=== PATIENT | male | born 2000 | race Caucasian/White ===

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

== ENCOUNTER 2020-07-07 02:53 | Emergency (ER) | payer SELFPAY ==
--- NOTE | 2020-07-07 03:11 | ED Physician Documentation ---
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 He subsequently went back to work when he later developed nausea and vomiting with dry heaves. He has persistence of the symptoms is now coming to the emergency department for evaluation. Review of Systems Constitutional: denies: Fever Eyes: denies: Decreased vision Ears: denies: Ear pain Nose: denies: Congestion Throat: denies: Sore throat Cardiac: denies: Chest pain / pressure Respiratory: denies: Dyspnea GI: reports: Nausea, Vomiting. denies: Abdominal Pain, Constipation, Diarrhea : denies: Dysuria PD PAST MEDICAL HISTORY - Past Medical History Cardiovascular: None Respiratory: None Endocrine/Autoimmune: None GI: None : None HEENT: None Psych: ADD/ADHD Derm: None - Past Surgical History Past Surgical History: No General: Appendectomy - Present Medications Home Medications: Ambulatory Orders Medication Instructions Recorded Confirmed Ondansetron Odt [Zofran] 4 mg TL Q6H PRN #10 tablet 07/07/20 - Allergies Allergies/Adverse Reactions: Allergies Allergy/AdvReac Type Severity Reaction Status Date / Time No Known Drug Allergies Allergy Verified 07/07/20 03:06 - Social History Does the pt smoke?: No Smoking Status: Never smoker Does the pt drink ETOH?: No Does the pt have substance abuse?: No - Immunizations Immunizations are current?: Yes - POLST Patient has POLST: No PD ED PE NORMAL - Vitals Vital signs reviewed: Yes (hypertensive) - General General: Alert and oriented X 3, No acute distress, Well developed/nourished - HEENT HEENT: Atraumatic, PERRL, EOMI - Neck Neck: Supple, no meningeal sign, No bony TTP - Cardiac Cardiac: RRR, No murmur - Respiratory Respiratory: No respiratory distress, Clear bilaterally - Abdomen Abdomen: Normal bowel sounds, Soft, Non tender, Non distended, No organomegaly - Back Back: No CVA TTP, No spinal TTP - Derm Derm: Normal color, Warm and dry, No rash - Extremities Extremities: No deformity, No edema - Neuro Neuro: Alert and oriented X 3, 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, No motor deficit, No sensory deficit, Normal speech Eye Opening: Spontaneous Motor: Obeys Commands Verbal: Oriented GCS Score: 15 - Psych Psych: Normal mood, Normal affect Results - Vitals Vitals: Vital Signs - 24 hr 07/07/20 07/07/20 07/07/20 03:06 03:10 03:54 Temperature 37.8 C 37.8 C 37.8 C Heart Rate 98 98 107 H Respiratory 16 16 16 Rate Blood Pressure 150/88 H 150/88 H 148/90 H O2 Saturation 100 100 100 Oxygen O2 Source Room air - EKG (time done) 0259 Rate: Rate (enter#) (85) Ischemia: Normal ST segments Compare to prior EKG: Unchanged from prior EKG (SPT 02/04/2013 no changes) Computer interpretation: Agree with computer - Labs Labs: Laboratory Tests 07/07/20 07/07/20 07/07/20 03:00 03:13 03:13 WBC 7.3 RBC 5.23 Hgb 13.6 L Hct 42.2 MCV 80.7 MCH 26.0 L MCHC 32.2 RDW 12.8 Plt Count 194 MPV 10.7 Neut # (Auto) 5.6 Lymph # (Auto) 0.7 L [place] # (Auto) 1.0 Eos # (Auto) 0.0 Baso # (Auto) 0.0 Absolute Nucleated RBC 0.00 Nucleated RBC % 0.0 Sodium 132 L Potassium 3.4 L Chloride 93 L Carbon Dioxide 26 Anion Gap 13.0 BUN 18 Creatinine 1.1 Estimated GFR (MDRD) 85 L Glucose 99 Calcium 9.2 Total Bilirubin 1.3 H AST 21 ALT 15 Alkaline Phosphatase 38 L Total Protein 7.4 Albumin 5.0 Globulin 2.4 Albumin/Globulin Ratio 2.1 Lipase 22 Urine Color YELLOW Urine Clarity CLEAR Urine pH 6.0 Ur Specific [place] 1.010 Urine Protein NEGATIVE Urine Glucose (UA) NEGATIVE Urine Ketones 15 H Urine Occult Blood SMALL H Urine Nitrite NEGATIVE Urine Bilirubin NEGATIVE Urine Urobilinogen 0.2 (NORMAL) Ur Leukocyte Esterase NEGATIVE Urine RBC 0-5 Urine WBC 0-3 Ur Squamous Epith Cells NONE SEEN Urine Bacteria None Seen Urine Culture Comments NOT INDICATED Procedures - IVC sono (time) 0318 Bedside IVC sono: IVC measures (cm) (1.12), Dehydration (est 1 ltier deficit) PD MEDICAL DECISION MAKING - ED course Complexity details: reviewed results, re-evaluated patient, considered differential, d/w patient ED course: 19-year-old male with what sounds like acute food poisoning as nausea and vomiting he is mildly dehydrated on initial evaluation and he is administered intravenous fluids as well as Zofran. We will send him home with a prescription for some Zofran and a note for work. Departure - Departure Disposition: Home, Self Care Clinical Impression: Food poisoning Condition: Stable Instructions: ED Gastroenteritis Vs Food Poison Follow-Up: Cuong Barfield MD [Provider Admit Priv/Credential] - Prescriptions: Ondansetron Odt [Zofran] 4 mg TL Q6H PRN #10 tablet PRN Reason: Nausea / Vomiting Forms: Activity restrictions
[2020-07-07 03:29] LABS: BILIRUBIN,URINE NEGATIVE (NEGATIVE); GLUCOSE, URINE (UA) NEGATIVE (NEGATIVE); KETONES,URINE (UA) 15 mg/dL (NEGATIVE); LEUKOCYTE ESTERASE, URINE NEGATIVE (NEGATIVE); NITRITE,URINE NEGATIVE (NEGATIVE); OCCULT BLOOD,URINE SMALL (NEGATIVE); PROTEIN,URINE NEGATIVE (NEGATIVE); UROBILINOGEN,URINE 0.2 (NORMAL) E.U./dL (NORMAL)
[2020-07-07 03:30] LABS: CLARITY,URINE CLEAR (CLEAR)
[2020-07-07 03:34] LABS: BACTERIA,URINE None Seen /HPF (None Seen); RBC,URINE 0-5 /HPF (0-5); SQUAMOUS EPITHELIAL CELL,UR NONE SEEN (<= Few); WBC,URINE 0-3 /HPF (0-3)
[2020-07-07] MEDS ORDERED: ONDANSETRON 4 MG/2 ML VIAL IVP STA (03:47)
[2020-07-07] MEDS ORDERED: SODIUM CHLORIDE 0.9% 1,000 ML IV STA (03:47)
[2020-07-07 03:52] LABS: BASOPHILS % (AUTO) 0.4 %; EOSINOPHILS % (AUTO) 0.5 %; HCT - HEMATOCRIT 42.2 % (42.0-52.0); HGB - HEMOGLOBIN 13.6 g/dL (14.0-18.0); LYMPHOCYTES # (AUTO) 0.7 10^3/uL (1.5-3.5); LYMPHOCYTES % (AUTO) 8.9 %; MEAN CORPUSCULAR HGB CONC 32.2 g/dL (32.0-36.0); MEAN CORPUSCULAR VOLUME 80.7 fL (80.0-94.0); MEAN PLATELET VOLUME 10.7 fL (7.4-11.4); MONOCYTES % (AUTO) 13.2 %; NEUTROPHILS # (AUTO) 5.6 10^3/uL (1.5-6.6); NEUTROPHILS % (AUTO) 76.9 %; PLT - PLATELET COUNT 194 10^3/uL (130-450); RED BLOOD COUNT 5.23 10^6/uL (4.70-6.10); RED CELL DISTRIBUTION WIDTH 12.8 % (12.0-15.0); WHITE BLOOD COUNT 7.3 x10^3/uL (4.8-10.8)
[2020-07-07 04:01] LABS: ALBUMIN/GLOBULIN RATIO 2.1 (1.0-2.2); BILIRUBIN,TOTAL 1.3 mg/dL (0.2-1.0); CALCIUM 9.2 mg/dL (8.5-10.3); CREATININE 1.1 mg/dL (0.6-1.2); POTASSIUM 3.4 mmol/L (3.5-5.0); TOTAL PROTEIN 7.4 g/dL (6.7-8.2)
[2020-07-07 04:38] VITALS: BP 134/77
== END 2020-07-07 04:54 | disposition home or self-care (01) ==
LOC: EDUNIT# → ED 02:53
DX: A05.9 Bacterial foodborne intoxication, unspecified (principal); E86.0 Dehydration
CPT/HCPCS: 36415; 80053; 81001; 83690; 85025; 87086; 93005; 96361; 96374; 99284

== ENCOUNTER 2023-05-20 15:30 | Emergency (ER) | payer BC ==
--- NOTE | 2023-05-20 15:42 | ED Physician Documentation ---
History of Present Illness - Stated complaint Stated Complaint: WEAKNESS - Chief complaint Chief Complaint: Abd Pain - History obtained from History obtained from: Patient, EMS - History of Present Illness Timing: Today Pain level max: 3 Pain level now: 2 - Additonal information Additional information: Patient is a 22-year-old male who presents to the emergency department via EMS. He was at work today when he started feeling nauseated and had an episode of vomiting. He states it started after eating a cup of noodles and a [employer] energy drink. No recent illnesses. No fevers. No cough. No congestion. He states now he just feels shaky and sore. He did not have any abdominal pain. No diarrhea. No constipation. He does use marijuana daily. Is not on any medications. Denies any alcohol use. He is still feels slightly nauseated. He is unsure if anyone else at work is sick. Review of Systems Constitutional: denies: Fever, Chills Respiratory: denies: Cough GI: reports: Nausea, Vomiting. denies: Diarrhea, Hematemesis, Bloody / black stool : denies: Dysuria Skin: denies: Rash Musculoskeletal: denies: Neck pain, Back pain Neurologic: denies: Headache PD PAST MEDICAL HISTORY - Past Medical History Cardiovascular: None Respiratory: None Endocrine/Autoimmune: None GI: None : None HEENT: None Psych: ADD/ADHD Derm: None - Past Surgical History Past Surgical History: No General: Appendectomy - Present Medications Home Medications: Ambulatory Orders Medication Instructions Recorded Confirmed Ondansetron Odt [Zofran] 4 mg TL Q6H PRN #10 tablet 05/20/23 - Allergies Allergies/Adverse Reactions: Allergies Allergy/AdvReac Type Severity Reaction Status Date / Time No Known Drug Allergies Allergy Verified 05/20/23 15:56 - Social History Does the pt smoke?: No Smoking Status: Never smoker Does the pt drink ETOH?: No Does the pt have substance abuse?: No - Immunizations Immunizations are current?: Yes - POLST Patient has POLST: No PD ED PE NORMAL - Vitals Vital signs reviewed: Yes - General General: Alert and oriented X 3, No acute distress - HEENT HEENT: PERRL, Moist mucous membranes - Neck Neck: Supple, no meningeal sign - Cardiac Cardiac: RRR, Strong equal pulses - Respiratory Respiratory: No respiratory distress, Clear bilaterally - Abdomen Abdomen: Soft, Non tender, Non distended - Derm Derm: Warm and dry, No rash - Extremities Extremities: No edema - Neuro Neuro: Alert and oriented X 3 - Psych Psych: Normal mood, Normal affect Results - Vitals Vitals: Vital Signs - 24 hr 05/20/23 05/20/23 05/20/23 15:30 16:00 16:53 Temperature 36.6 C 36.7 C Heart Rate 80 64 79 Respiratory 16 16 17 Rate Blood Pressure 141/71 H 139/75 H 132/78 H O2 Saturation 100 99 100 Oxygen O2 Source Room air - EKG (time done) 1553 EKG releavant findings:: EKG personally interpreted by author of this note. Relevant findings are: Rate: Rate (enter#) (62) Rhythm: NSR [place]: Normal Intervals: Normal HI QRS: Normal Ischemia: Normal ST segments - Labs Labs: Laboratory Tests 05/20/23 05/20/23 05/20/23 15:40 15:40 15:45 WBC 11.4 H RBC 5.63 Hgb 14.5 Hct 45.3 MCV 80.5 MCH 25.8 L MCHC 32.0 RDW 13.2 Plt Count 245 MPV 9.9 Neut # (Auto) 8.4 H Lymph # (Auto) 2.2 [place] # (Auto) 0.7 Eos # (Auto) 0.1 Baso # (Auto) 0.1 Absolute Nucleated RBC 0.00 Nucleated RBC % 0.0 Sodium 140 Potassium 3.6 Chloride 103 Carbon Dioxide 28 Anion Gap 9.0 BUN 13 Creatinine 1.0 Estimated GFR (MDRD) 93 Glucose 93 Calcium 9.8 Total Bilirubin 0.7 AST 25 ALT 14 Alkaline Phosphatase 45 Total Protein 7.6 Albumin 5.2 Globulin 2.4 Albumin/Globulin Ratio 2.2 Lipase 11 Urine Color YELLOW Urine Clarity CLEAR Urine pH 6.0 Ur Specific [place] 1.010 Urine Protein NEGATIVE Urine Glucose (UA) NEGATIVE Urine Ketones NEGATIVE Urine Occult Blood TRACE-INTA Urine Nitrite NEGATIVE Urine Bilirubin NEGATIVE Urine Urobilinogen 0.2 (NORMAL) Ur Leukocyte Esterase NEGATIVE Ur Microscopic Review NOT INDICATED Urine Culture Comments NOT INDICATED PD Medical Decision Making - ED course Complexity details: reviewed results, re-evaluated patient, considered differential, d/w patient, d/w family ED course: Patient was given IV fluids, Zofran. No significant lab abnormalities. No acute findings on EKG or telemetry. Patient is well-appearing, nontoxic. Afebrile. Abdomen is soft, nontender nondistended. No diarrhea or constipation. Possible viral enteritis? No indication for emergent imaging at this time. Will place on Zofran for home as well. Continue supportive care. Patient and family counseled regarding signs and symptoms for which I believe and urgent re-evaluation would be necessary. Patient with good understanding of and agreement to plan and is comfortable going home at this time This document was made in part using voice recognition software. While efforts are made to proofread this document, sound alike and grammatical errors may occur. Departure - Departure Disposition: Home, Self Care Clinical Impression: Nausea Vomiting Qualifiers: Vomiting type: unspecified Nausea presence: with nausea Qualified Code(s): R11.2 - Nausea with vomiting, unspecified Condition: Good Instructions: ED Nausea Vomiting Follow-Up: your,doctor in 1 week if not better [Other] Prescriptions: Ondansetron Odt [Zofran] 4 mg TL Q6H PRN #10 tablet PRN Reason: Nausea / Vomiting Comments: Your testing does not show any acute abnormalities today. You were given IV fluids and Zofran. Your nausea is resolved. This is likely due to a viral illness, the nausea and vomiting may continue for up to 2 to 3 days. You may develop diarrhea as well. Your prescription was sent to [facility] in [place]. Please return if you worsen. Forms: PCP List Discharge Date/Time: 05/20/23 16:58
[2023-05-20 15:53] LABS: BASOPHILS # (AUTO) 0.1 10^3/uL (0.0-0.1); BASOPHILS % (AUTO) 0.4 %; EOSINOPHILS # (AUTO) 0.1 10^3/uL (0.0-0.7); EOSINOPHILS % (AUTO) 0.6 %; HCT - HEMATOCRIT 45.3 % (42.0-52.0); HGB - HEMOGLOBIN 14.5 g/dL (14.0-18.0); LYMPHOCYTES # (AUTO) 2.2 10^3/uL (1.5-3.5); LYMPHOCYTES % (AUTO) 19.4 %; MEAN CORPUSCULAR HEMOGLOBIN 25.8 pg (27.0-31.0); MEAN CORPUSCULAR VOLUME 80.5 fL (80.0-94.0); MEAN PLATELET VOLUME 9.9 fL (7.4-11.4); MONOCYTES # (AUTO) 0.7 10^3/uL (0.0-1.0); MONOCYTES % (AUTO) 5.7 %; NEUTROPHILS # (AUTO) 8.4 10^3/uL (1.5-6.6); NEUTROPHILS % (AUTO) 73.6 %; PLT - PLATELET COUNT 245 10^3/uL (130-450); RED BLOOD COUNT 5.63 10^6/uL (4.70-6.10); RED CELL DISTRIBUTION WIDTH 13.2 % (12.0-15.0); WHITE BLOOD COUNT 11.4 x10^3/uL (4.8-10.8)
[2023-05-20] MEDS: SODIUM CHLORIDE 0.9% 1,000 ML IV STA (15:53)
[2023-05-20] MEDS: ONDANSETRON 4 MG/2 ML VIAL IVP STA (15:54)
[2023-05-20 16:05] LABS: BILIRUBIN,URINE NEGATIVE (NEGATIVE); GLUCOSE, URINE (UA) NEGATIVE (NEGATIVE); KETONES,URINE (UA) NEGATIVE (NEGATIVE); LEUKOCYTE ESTERASE, URINE NEGATIVE (NEGATIVE); NITRITE,URINE NEGATIVE (NEGATIVE); OCCULT BLOOD,URINE TRACE-INTA (NEGATIVE); PROTEIN,URINE NEGATIVE (NEGATIVE); UROBILINOGEN,URINE 0.2 (NORMAL) E.U./dL (NORMAL)
[2023-05-20 16:10] LABS: CLARITY,URINE CLEAR (CLEAR)
[2023-05-20 16:37] LABS: ALBUMIN 5.2 g/dL (3.2-5.5); ALBUMIN/GLOBULIN RATIO 2.2 (1.0-2.2); BILIRUBIN,TOTAL 0.7 mg/dL (0.2-1.0); CALCIUM 9.8 mg/dL (8.5-10.3); POTASSIUM 3.6 mmol/L (3.5-4.5); TOTAL PROTEIN 7.6 g/dL (6.4-8.9)
[2023-05-20 16:58] VITALS: BP 132/78; O2SAT 100
== END 2023-05-20 16:58 | disposition home or self-care (01) ==
LOC: EDUNIT# → ED 15:30
DX: R11.2 Nausea with vomiting, unspecified (principal)
CPT/HCPCS: 36415; 80053; 81001; 81003; 83690; 85025; 87086; 93005; 99283; 99284

== ENCOUNTER 2023-11-22 22:38 | Emergency (ER) | payer BC ==
[2023-11-22 22:59] VITALS: BP 139/76; O2SAT 99
--- NOTE | 2023-11-22 23:26 | ED Physician Documentation ---
PD HPI HEENT - Stated complaint Stated Complaint: TOOTH PX - Chief complaint Chief Complaint: Heent - History obtained from History obtained from: Patient - Additional information Additional information: 23-year-old male presents for 2 days of dental pain. He states that he has a known broken tooth on that side with an exposed nerve root. He states that he aggravated the nerve root by something he ate prior to symptom onset. Has taken Tylenol and ibuprofen at home for pain without significant relief. He states that he will see a dentist Friday morning, but he cannot take the pain. Review of Systems Constitutional: denies: Fever, Chills Ears: denies: Loss of hearing, Ear pain, Drainage/discharge Nose: denies: Rhinorrhea / runny nose, Foreign Body Throat: reports: Dental pain / toothache. denies: Oral lesions / sores, Sore throat, Swollen tonsils, Swallowed foreign body PD PAST MEDICAL HISTORY - Past Medical History Past Medical History: Yes Cardiovascular: None Respiratory: None Endocrine/Autoimmune: None GI: None : None HEENT: None Psych: ADD/ADHD Derm: None - Past Surgical History Past Surgical History: Yes General: Appendectomy - Present Medications Home Medications: Ambulatory Orders Medication Instructions Recorded Confirmed Amox/Clav 875/125 [Augmentin] 1 each PO Q12H #20 tablet 11/22/23 HYDROcod/ACETAM 5/325 [[place] 5/325] 1 tab PO Q8HR PRN #8 tablet 11/22/23 - Allergies Allergies/Adverse Reactions: Allergies Allergy/AdvReac Type Severity Reaction Status Date / Time No Known Drug Allergies Allergy Verified 11/22/23 22:55 - Social History Does the pt smoke?: Yes Smoking Status: Current every day smoker Does the pt drink ETOH?: No Does the pt have substance abuse?: No - Immunizations Immunizations are current?: Yes - POLST Patient has POLST: No PD ED PE NORMAL - Vitals Vital signs reviewed: Yes - General General: Alert and oriented X 3, Well developed/nourished - HEENT HEENT: PERRL, EOMI, Ears normal, Other (dental cavity present R lower molars) - Derm Derm: Normal color, Warm and dry, No rash - Neuro Neuro: Alert and oriented X 3, 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 There does appear to be an open cavity present, with worsening pain concern is for early developing infection. Pain medications and antibiotic sent to pharmacy of choice. Patient advised on the importance of dental follow-up. Departure - Departure Disposition: Home, Self Care Clinical Impression: Pain, dental Condition: Stable Instructions: ED Fx Tooth Prescriptions: HYDROcod/ACETAM 5/325 [[place] 5/325] 1 tab PO Q8HR PRN #8 tablet PRN Reason: Pain Amox/Clav 875/125 [Augmentin] 1 each PO Q12H #20 tablet Comments: Continue to take Tylenol and ibuprofen as needed for pain. Short course of pain medications has been sent to the [facility] in [place]. I am also starting you on antibiotics prior to you seeing your dental surgeon. Please make sure that Friday morning you call your dentist office for an appointment. Forms: PCP List Discharge Date/Time: 11/22/23 23:32
[2023-11-22] MEDS: HYDROcod/ACET 5/325 Prepack 4 PO STA (23:30)
== END 2023-11-22 23:32 | disposition home or self-care (01) ==
LOC: ED 22:38
DX: K08.89 Other specified disorders of teeth and supporting structures (principal); F17.200 Nicotine dependence, unspecified, uncomplicated
CPT/HCPCS: 99283